=== PATIENT | male | born 1935 | race Hispanic/Latino ===

== ENCOUNTER 2017-09-06 08:05 | Inpatient (IN) | payer MEDICARE, OTHER ==
[~2017-09-06] VITALS: Ht 172.7 cm; Wt 81.9 kg
[~2017-09-06 08:05] MED LIST: GLIP1TAB5 PO; GLIP5TAB11 PO; LOSA1TAB37 PO; METF10004 PO; SIMV5TAB6 PO
[2017-09-06 08:43] LABS: BASOPHILS % (AUTO) 0.3 % (0.0-5.0); EOSINOPHILS % (AUTO) 0.9 % (0.0-8.0); HEMATOCRIT 29.1 % (42-54); LYMPHOCYTES % (AUTO) 23.9 % (21.0-51.0); MEAN CORPUSCULAR HEMOGLOBIN 29.1 pg (27.0-33.0); MEAN CORPUSCULAR VOLUME 83.2 fL (79-99); NEUTROPHILS % (AUTO) 65.9 % (40.0-77.0); PLATELET COUNT (AUTO) 177 K/uL (130-400); RED CELL DISTRIBUTION WIDTH 14.7 % (11.0-15.5); WHITE BLOOD COUNT (AUTO) 8.6 K/uL (4.8-10.8)
[2017-09-06 08:48] LABS: CREATININE 0.9 mg/dL (0.5-1.5)
[2017-09-06 08:53] LABS: BILIRUBIN,TOTAL 0.5 mg/dL (0.2-1.0); TOTAL PROTEIN, SERUM 6.2 g/dL (6.0-8.3)
[2017-09-06] MEDS ORDERED: SODIUM CHLORIDE 0.9% 1000ML 1,000 ML IV ONE ×2 (09:13→11:00)
[2017-09-06] MEDS ORDERED: HYDRALAZINE HCL 20 MG/ML VIAL IV PRN (11:45)
[2017-09-06] MEDS ORDERED: NITROGLYCERIN 0.4 MG SL TAB SL PRN (11:45)
[2017-09-06] MEDS ORDERED: LACTULOSE 20 GM/30 ML UDCUP PO PRN (11:45)
[2017-09-06] MEDS ORDERED: MORPHINE SULFATE 2 MG/ML 1ML SYG IV PRN (11:45)
[2017-09-06] MEDS ORDERED: POTASSIUM CHLORIDE 20MEQ/100ML 100 ML IV PRN (11:45)
[2017-09-06] MEDS ORDERED: ACETAMINOPHEN 325 MG TAB PO PRN ×2 (11:45)
[2017-09-06] MEDS ORDERED: ONDANSETRON HCL 4 MG/2 ML VIAL IV PRN (11:45)
[2017-09-06] MEDS ORDERED: POTASSIUM CHLORIDE 10% ELIXIR 20 MEQ/15 ML UDCUP PO PRN (11:45)
[2017-09-06] MEDS ORDERED: GUAIFENESIN-DM 200/20 MG 10 ML PO PRN (11:45)
[2017-09-06] MEDS ORDERED: LIDOCAINE HCL-MPF 1% 2ML VIAL IVP PRN (11:45)
[2017-09-06] MEDS ORDERED: ACETAMINOPHEN-CODEINE 300/30MG TAB PO PRN ×2 (11:45)
[2017-09-06] MEDS ORDERED: MORPHINE SULFATE 4 MG/1ML SYG IV PRN (11:45)
[2017-09-06] MEDS ORDERED: MAG HYDROX/AL HYDROX/SIMETH ES 30 ML SUSP UDCUP PO PRN (11:45)
[2017-09-06] MEDS ORDERED: PANTOPRAZOLE SODIUM 40 MG TABLET.DR PO ONE (14:22)
[2017-09-06 16:00] VITALS: BP 143/73
[2017-09-06] MEDS ORDERED: PILO15DR48 OP (16:19)
[2017-09-06] MEDS ORDERED: GLIP2.5T2 PO (16:19)
[2017-09-06] MEDS ORDERED: LOSA1TAB37 PO (16:19)
[2017-09-06] MEDS ORDERED: SIMV5TAB6 PO (16:19)
[2017-09-06] MEDS ORDERED: METF10004 PO (16:19)
[2017-09-06] MEDS ORDERED: AMLO5TAB2 PO (16:19)
[2017-09-06] MEDS ORDERED: DORZ10DR9 OD (16:19)
[2017-09-06] MEDS ORDERED: BRIM5DRO OP (16:19)
[2017-09-06] MEDS ORDERED: LATA2.5D2 OP (16:19)
[2017-09-06] MEDS: INSULIN HUMULIN R 100 UNIT/ML 3ML SQ SCH ×2 (16:30→21:00)
[2017-09-06] MEDS: SODIUM CHLORIDE 0.9% 1000ML 1,000 ML IV SCH (16:45)
[2017-09-06] MEDS: LEVOFLOXACIN 500 MG/D5W 100 ML 100 ML IV SCH (17:34)
[2017-09-06 20:06] VITALS: BP 123/64
[2017-09-06] MEDS: METRONIDAZOLE 500MG/100ML BAG 100 ML IV SCH (21:22)
[2017-09-06 23:44] VITALS: BP 123/66
[2017-09-07] VITALS (14 sets, daily range): BP systolic 118–151; BP diastolic 65–80
[2017-09-07] MEDS: SODIUM CHLORIDE 0.9% 1000ML 1,000 ML IV SCH ×2 (00:01→13:32)
[2017-09-07] MEDS ORDERED: SODIUM CHLORIDE 0.9% 250 ML IV ONE (03:03)
[2017-09-07] MEDS: METRONIDAZOLE 500MG/100ML BAG 100 ML IV SCH ×3 (05:21→21:11)
[2017-09-07] MEDS: INSULIN HUMULIN R 100 UNIT/ML 3ML SQ SCH ×4 (06:54→20:31)
[2017-09-07] MEDS: FUROSEMIDE 10 MG/ML 2ML VIAL IV SCH (08:36)
[2017-09-07] MEDS: PANTOPRAZOLE SODIUM 40 MG TABLET.DR PO SCH (08:37)
[2017-09-07] MEDS: PILOCARPINE HCL 2% 15 ML DROPS OP SCH ×2 (13:37→20:30)
[2017-09-07 17:14] LABS: HEMATOCRIT 29.8 % (42-54)
[2017-09-07] MEDS: LEVOFLOXACIN 500 MG/D5W 100 ML 100 ML IV SCH (17:14)
[2017-09-07 17:23] LABS: POTASSIUM 3.2 mmol/L (3.5-5.1)
[2017-09-07] MEDS: DORZOLAMIDE HCL 2% 10ML DROPS OD SCH (20:28)
[2017-09-07] MEDS: TIMOLOL MALEATE 0.5% 5 ML BOTTLE OP SCH (20:29)
[2017-09-07] MEDS: BRIMONIDINE TARTRATE 0.2% 5 ML BOTTLE OP SCH (20:30)
[2017-09-07] MEDS: LATANOPROST 2.5 ML DROPS OP SCH (20:30)
[2017-09-07] MEDS: SIMVASTATIN 5 MG PO SCH (20:31)
[2017-09-07 21:12] LABS: HEMATOCRIT 28.9 % (42-54)
[2017-09-08] MEDS: FUROSEMIDE 10 MG/ML 2ML VIAL IV SCH (01:22)
[2017-09-08 04:10] VITALS: BP 118/69
[2017-09-08] MEDS: METRONIDAZOLE 500MG/100ML BAG 100 ML IV SCH ×2 (05:27→15:31)
[2017-09-08 05:38] LABS: HEMATOCRIT 26.6 % (42-54); MEAN CORPUSCULAR HEMOGLOBIN 30.2 pg (27.0-33.0); MEAN CORPUSCULAR VOLUME 83.9 fL (79-99); PLATELET COUNT (AUTO) 143 K/uL (130-400); RED BLOOD CELL COUNT(AUTO) 3.18 MIL/uL (4.50-6.20); RED CELL DISTRIBUTION WIDTH 14.6 % (11.0-15.5); WHITE BLOOD COUNT (AUTO) 8.3 K/uL (4.8-10.8)
[2017-09-08 05:46] LABS: CREATININE 0.8 mg/dL (0.5-1.5); POTASSIUM 3.4 mmol/L (3.5-5.1)
[2017-09-08 07:00] VITALS: BP 127/74
[2017-09-08] MEDS: INSULIN HUMULIN R 100 UNIT/ML 3ML SQ SCH ×4 (07:30→21:00)
[2017-09-08] MEDS: PANTOPRAZOLE SODIUM 40 MG TABLET.DR PO SCH (08:55)
[2017-09-08] MEDS: AMLODIPINE BESYLATE 5 MG TAB PO SCH (08:55)
[2017-09-08] MEDS: TIMOLOL MALEATE 0.5% 5 ML BOTTLE OP SCH ×2 (10:41→21:00)
[2017-09-08] MEDS: BRIMONIDINE TARTRATE 0.2% 5 ML BOTTLE OP SCH ×2 (10:41→21:00)
[2017-09-08] MEDS: DORZOLAMIDE HCL 2% 10ML DROPS OD SCH ×2 (10:42→21:00)
[2017-09-08] MEDS: PILOCARPINE HCL 2% 15 ML DROPS OP SCH ×3 (10:42→21:00)
[2017-09-08 11:00] VITALS: BP 141/71
[2017-09-08 11:51] LABS: HEMATOCRIT 27.4 % (42-54)
[2017-09-08 16:00] VITALS: BP 183/87
[2017-09-08] MEDS: LEVOFLOXACIN 500 MG/D5W 100 ML 100 ML IV SCH (17:01)
[2017-09-08 17:33] LABS: HEMATOCRIT 26.4 % (42-54)
[2017-09-08 20:00] VITALS: BP 153/81
[2017-09-08] MEDS: LATANOPROST 2.5 ML DROPS OP SCH (21:00)
[2017-09-08] MEDS: SIMVASTATIN 5 MG PO SCH (21:00)
[2017-09-08 21:35] LABS: HEMATOCRIT 26.3 % (42-54)
[2017-09-08 23:49] VITALS: BP 143/68
[2017-09-09] MEDS: POTASSIUM CHLORIDE 20 MEQ ERTAB PO PRN ×3 (00:02→11:14)
[2017-09-09] MEDS: METRONIDAZOLE 500MG/100ML BAG 100 ML IV SCH ×4 (00:03→22:40)
[2017-09-09] MEDS: FUROSEMIDE 10 MG/ML 2ML VIAL IV SCH ×2 (00:10→22:40)
[2017-09-09 03:49] VITALS: BP_SYST 148; BP_SYST 154; BP_DIAS 71; BP_DIAS 79
[2017-09-09 06:40] LABS: HEMATOCRIT 27.7 % (42-54); MEAN CORPUSCULAR HEMOGLOBIN 29.1 pg (27.0-33.0); MEAN CORPUSCULAR HGB CONC 34.3 g/dL (32.0-36.0); MEAN CORPUSCULAR VOLUME 84.8 fL (79-99); PLATELET COUNT (AUTO) 141 K/uL (130-400); RED BLOOD CELL COUNT(AUTO) 3.26 MIL/uL (4.50-6.20); RED CELL DISTRIBUTION WIDTH 14.7 % (11.0-15.5); WHITE BLOOD COUNT (AUTO) 8.4 K/uL (4.8-10.8)
[2017-09-09] MEDS: INSULIN HUMULIN R 100 UNIT/ML 3ML SQ SCH ×4 (06:46→21:00)
[2017-09-09 06:49] LABS: CREATININE 0.8 mg/dL (0.5-1.5); POTASSIUM 3.8 mmol/L (3.5-5.1)
[2017-09-09 07:53] VITALS: BP 150/78
[2017-09-09] MEDS: TIMOLOL MALEATE 0.5% 5 ML BOTTLE OP SCH ×2 (09:00→21:00)
[2017-09-09] MEDS: PILOCARPINE HCL 2% 15 ML DROPS OP SCH ×3 (09:00→21:00)
[2017-09-09] MEDS: DORZOLAMIDE HCL 2% 10ML DROPS OD SCH ×2 (09:00→21:00)
[2017-09-09] MEDS: BRIMONIDINE TARTRATE 0.2% 5 ML BOTTLE OP SCH ×2 (09:00→21:00)
[2017-09-09] MEDS: AMLODIPINE BESYLATE 5 MG TAB PO SCH (09:25)
[2017-09-09] MEDS: PANTOPRAZOLE SODIUM 40 MG TABLET.DR PO SCH (09:25)
[2017-09-09 11:36] VITALS: BP 130/62
[2017-09-09] MEDS: LEVOFLOXACIN 500 MG/D5W 100 ML 100 ML IV SCH (15:49)
[2017-09-09 16:37] VITALS: BP 139/55
[2017-09-09 20:00] VITALS: BP 141/73
[2017-09-09] MEDS: LATANOPROST 2.5 ML DROPS OP SCH (21:00)
[2017-09-09] MEDS: SIMVASTATIN 5 MG PO SCH (21:00)
[2017-09-09] MEDS: METFORMIN HCL 500 MG TABLET PO SCH (22:40)
[2017-09-09 23:43] VITALS: BP 142/76
[2017-09-10 03:59] LABS: HEMATOCRIT 28.5 % (42-54); MEAN CORPUSCULAR HEMOGLOBIN 30.7 pg (27.0-33.0); MEAN CORPUSCULAR HGB CONC 35.9 g/dL (32.0-36.0); MEAN CORPUSCULAR VOLUME 85.5 fL (79-99); PLATELET COUNT (AUTO) 126 K/uL (130-400); RED BLOOD CELL COUNT(AUTO) 3.34 MIL/uL (4.50-6.20); RED CELL DISTRIBUTION WIDTH 14.7 % (11.0-15.5); WHITE BLOOD COUNT (AUTO) 9.9 K/uL (4.8-10.8)
[2017-09-10 04:00] VITALS: BP 153/80
[2017-09-10 04:04] LABS: CREATININE 0.9 mg/dL (0.5-1.5); POTASSIUM 3.7 mmol/L (3.5-5.1)
[2017-09-10] MEDS: INSULIN HUMULIN R 100 UNIT/ML 3ML SQ SCH ×2 (06:54→12:50)
[2017-09-10] MEDS: METRONIDAZOLE 500MG/100ML BAG 100 ML IV SCH (06:58)
[2017-09-10 07:49] VITALS: BP 132/66
[2017-09-10] MEDS ORDERED: GLIPIZIDE XL 2.5MG TAB PO SCH (09:00)
[2017-09-10] MEDS: BRIMONIDINE TARTRATE 0.2% 5 ML BOTTLE OP SCH (09:00)
[2017-09-10] MEDS ORDERED: LOSARTAN/HYDROCHLOROTHIAZIDE 50-12.5MG TABLET PO SCH (09:00)
[2017-09-10] MEDS: METFORMIN HCL 500 MG TABLET PO SCH (09:45)
[2017-09-10] MEDS: PANTOPRAZOLE SODIUM 40 MG TABLET.DR PO SCH (09:45)
[2017-09-10] MEDS: AMLODIPINE BESYLATE 5 MG TAB PO SCH (09:45)
[2017-09-10] MEDS: TIMOLOL MALEATE 0.5% 5 ML BOTTLE OP SCH (10:06)
[2017-09-10] MEDS: PILOCARPINE HCL 2% 15 ML DROPS OP SCH (10:06)
[2017-09-10] MEDS: DORZOLAMIDE HCL 2% 10ML DROPS OD SCH (10:07)
[2017-09-10 11:07] VITALS: BP 124/70
== END 2017-09-10 16:00 | disposition home or self-care (01) | DRG 378 ==
LOC: EDH 08:05 → EDHIP 11:39 → 3BH 16:42
PROVIDERS: ADMIT Internal Medicine; ATTEND Internal Medicine
PROC: 30233N1 Transfusion of Nonautologous Red Blood Cells into Peripheral Vein, Percutaneous Approach (ICD-10-PCS; principal; 2017-09-07)
DX: K57.93 Diverticulitis of intestine, part unspecified, without perforation or abscess with bleeding (principal); D62 Acute posthemorrhagic anemia; E11.9 Type 2 diabetes mellitus without complications; K52.9 Noninfective gastroenteritis and colitis, unspecified; I10 Essential (primary) hypertension; E78.5 Hyperlipidemia, unspecified
CPT/HCPCS: 36415; 36430; 74176; 80048; 80053; 82270; 82948; 85014; 85018; 85025; 85027; 86677; 86850; 86900; 86901; 86922; J1815; J1940; J1956; J3490; J7030; P9016

== ENCOUNTER 2017-10-06 02:56 | Emergency (ER) | payer MEDICARE ==
[~2017-10-06 02:56] MED LIST changes: +AMLO5TAB2 PO; +BRIM5DRO OP; +DORZ10DR9 OD; -GLIP1TAB5 PO; +GLIP2.5T2 PO; -GLIP5TAB11 PO; +LATA2.5D2 OP; +PILO15DR48 OP
[2017-10-06 03:31] LABS: BASOPHILS % (AUTO) 0.2 % (0.0-5.0); HEMATOCRIT 35.5 % (42-54); LYMPHOCYTES % (AUTO) 5.9 % (21.0-51.0); MEAN CORPUSCULAR HEMOGLOBIN 27.6 pg (27.0-33.0); MEAN CORPUSCULAR HGB CONC 33.8 g/dL (32.0-36.0); MEAN CORPUSCULAR VOLUME 81.7 fL (79-99); MONOCYTES % (AUTO) 4.1 % (3.0-13.0); NEUTROPHILS % (AUTO) 89.8 % (40.0-77.0); PLATELET COUNT (AUTO) 213 K/uL (130-400); RED BLOOD CELL COUNT(AUTO) 4.34 MIL/uL (4.50-6.20); RED CELL DISTRIBUTION WIDTH 14.9 % (11.0-15.5); WHITE BLOOD COUNT (AUTO) 12.6 K/uL (4.8-10.8)
[2017-10-06] MEDS ORDERED: FAMOTIDINE 20MG TAB 20 MG TAB ONE ×2 (03:37→03:40)
[2017-10-06] MEDS ORDERED: ONDANSETRON HCL 4 MG/2 ML VIAL ONE (03:38)
[2017-10-06] MEDS ORDERED: SODIUM CHLORIDE 0.9% 1000ML 1,000 ML IV ONE (03:38)
[2017-10-06 03:51] LABS: CREATININE 0.8 mg/dL (0.5-1.5); POTASSIUM 3.5 mmol/L (3.5-5.1)
[2017-10-06 03:55] LABS: ALBUMIN 3.9 g/dL (3.5-5.0); BILIRUBIN,TOTAL 0.5 mg/dL (0.2-1.0); TOTAL PROTEIN, SERUM 7.6 g/dL (6.0-8.3)
[2017-10-06] MEDS ORDERED: MORPHINE SULFATE 4 MG/1ML SYG ONE (04:14)
[2017-10-06 04:26] LABS: APPEARANCE,URINE Clear (CLEAR); BILIRUBIN,URINE Negative (NEGATIVE); COLOR,URINE Yellow (YELLOW); GLUCOSE, URINE (UA) 250 mg/dL (NEGATIVE); KETONES,URINE 40 mg/dL (NEGATIVE); LEUKOCYTE ESTERASE ,URINE Negative (NEGATIVE); NITRATE,URINE Negative (NEGATIVE); OCCULT BLOOD,URINE Negative (NEGATIVE); PROTEIN,URINE Trace (NEGATIVE); UROBILINOGEN,URINE 0.2 mg/dL (0.2-1.0)
[2017-10-06 04:37] LABS: BACTERIA,URINE Rare /HPF (None Seen); RBC,URINE 0-1 /HPF (0-1); SQUAMOUS EPITHELIAL CELL,UR 0-2 /HPF (0-2); WBC,URINE 0-1 /HPF (0-1)
[2017-10-06] MEDS ORDERED: SUCRALFATE 1 GM TABLET ONE (04:52)
[2017-10-06] MEDS ORDERED: PANTOPRAZOLE SODIUM 40 MG TABLET.DR PO ONE (06:12)
[2017-10-06] MEDS ORDERED: LIDOCAINE HCL 2% VISCOUS 15 ML UDCUP ONE (06:48)
[2017-10-06] MEDS ORDERED: MAG HYDROX/AL HYDROX/SIMETH ES 30 ML SUSP UDCUP ONE (06:48)
== END 2017-10-06 07:55 | disposition home or self-care (01) ==
LOC: EDH 02:56
DX: R10.13 Epigastric pain (principal); R11.2 Nausea with vomiting, unspecified; E78.5 Hyperlipidemia, unspecified; I10 Essential (primary) hypertension
CPT/HCPCS: 36415; 74176; 76705; 80053; 81001; 82150; 83690; 85025; 93005; 96361; 96374; 96375; 99285; J2270; J2405; J7030

== ENCOUNTER 2021-05-07 15:34 | Emergency (ER) | payer MEDICARE ==
[~2021-05-07] VITALS: Ht 167.6 cm; Wt 84.4 kg
[~2021-05-07 15:34] MED LIST changes: +AMLO-257 PO; -AMLO5TAB2 PO; +LATA2.5D14 OP; -LATA2.5D2 OP; +METF-446 PO; -METF10004 PO; +SIMV5TAB58 PO; -SIMV5TAB6 PO
[2021-05-07 15:40] VITALS: BP 133/69
[2021-05-07] MEDS ORDERED: MAGNESIUM CITRATE 296 ML SOLUTION PO SCH (16:00)
[2021-05-07] MEDS ORDERED: LACTULOSE 20 GM/30 ML UDCUP PO SCH (16:00)
[2021-05-07] MEDS ORDERED: LACT10PA5 PO (16:08)
== END 2021-05-07 16:16 | disposition home or self-care (01) ==
LOC: EDH 15:34
DX: K59.00 Constipation, unspecified (principal); T40.2X5A Adverse effect of other opioids, initial encounter; E11.9 Type 2 diabetes mellitus without complications; E78.00 Pure hypercholesterolemia, unspecified; I10 Essential (primary) hypertension; Z79.84 Long term (current) use of oral hypoglycemic drugs; Z79.899 Other long term (current) drug therapy; Y92.89 Other specified places as the place of occurrence of the external cause